=== PATIENT | male | born 1935 | race Two or more races ===

== ENCOUNTER 2016-12-04 11:56 | Inpatient (IN) | payer OTHER ==
[~2016-12-04] VITALS: Ht 175.3 cm; Wt 68.1 kg
[2016-12-04] MEDS ORDERED: SODIUM CHLORIDE 0.9% 1,000 ML IV ONE (12:58)
[2016-12-04 13:58] LABS: Basophils # (auto) 0 uL; Basophils % (auto) 0.4 % (0.0-2.0); Eosinophils # (auto) 0.1 uL; Eosinophils % (auto) 0.7 % (0.0-7.0); Hematocrit 47.8 % (41.0-53.0); Hemoglobin 15.8 g/dL (13.5-17.5); Lymphocytes # (auto) 1.3 uL; Lymphocytes % (auto) 12.8 % (10.0-50.0); Mean Corpuscular Hemoglobin 30.1 pg (28.0-32.0); Mean Corpuscular Hgb Conc. 33.1 g/dL (32.0-36.0); Mean Platelet Volume 8.9 fL (7.4-10.4); Monocytes # (auto) 0.4 uL; Monocytes % (auto) 4.3 % (0.0-12.0); Neutrophils # (auto) 8.3 uL; Neutrophils % (auto) 81.8 % (37.0-80.0); Platelet Count (auto) 221 10^3/uL (140-450); Red Cell Distribution Width 13.5 % (11.6-16.0); White Blood Cell 10.1 10^3/uL (4.4-10.8)
[2016-12-04 14:18] LABS: INR 0.98 (0.9-1.15); Partial Thromboplastin Time 29.8 sec (22.64-33.71); Prothrombin Time 10.7 sec (9.37-12.3)
[2016-12-04 14:25] LABS: Alkaline Phosphatase 87 U/L (45-117); Anion Gap 8 (5-15); Aspartate Aminotransferase 21 U/L (15-37); B-Type Natriuretic Peptide 13.65 pg/mL (0-100); BUN/Creatinine Ratio 22.9; Bilirubin, Total 0.5 mg/dL (0.2-1.0); Blood Urea Nitrogen 30 mg/dL (7-18); Calcium 8.9 mg/dL (8.5-10.1); Carbon Dioxide 29 mmol/L (21-32); Chloride 103 mmol/L (98-107); GFR African American 67 mL/min; GFR Non-African American 56 mL/min; Glucose 104 mg/dL (74-106); Potassium 4.5 mmol/L (3.5-5.1); Sodium 140 mmol/L (136-145); Total Protein 7.7 g/dL (6.4-8.2)
[2016-12-04 14:29] LABS: Temperature: 23.9 C (20.0-25.0)
[2016-12-04 15:03] LABS: Urine RBC None Seen /hpf (0 - 3)
[2016-12-04] MEDS ORDERED: LORazepam 2MG/ML-1ML VIAL ONE (15:33)
[2016-12-04] MEDS ORDERED: SODIUM CHLORIDE 0.9% 1,000 ML IV SCH (15:37)
[2016-12-04] MEDS ORDERED: PROMETHAZINE HCL 25 MG/ML 1ML IV PRN (15:45)
[2016-12-04] MEDS ORDERED: ACETAMINOPHEN 500 MG TAB PO PRN (15:45)
[2016-12-04] MEDS ORDERED: NITROGLYCERIN 0.4 MG SL TAB SL PRN (15:45)
[2016-12-04] MEDS ORDERED: LORazepam 2MG/ML-1ML VIAL IV ONE (15:45)
[2016-12-04] MEDS ORDERED: LACTULOSE 20Gm/30ML SOLN PO PRN (15:45)
[2016-12-04] MEDS ORDERED: LORazepam 0.5 MG TAB PO PRN (15:45)
[2016-12-04] MEDS ORDERED: MORPHINE SULF INJ 2 MG/ML SYRINGE 1ML IV PRN ×2 (15:45)
[2016-12-04] MEDS ORDERED: HYDROcodone-ACET 5/325MG TAB PO PRN (15:45)
[2016-12-04 15:49] LABS: Urine Bilirubin Negative (Negative); Urine Blood Negative /uL (Negative); Urine Color Yellow (Yellow); Urine Glucose Normal (Normal); Urine Hyaline Cast FEW /lpf (0 - 2); Urine Ketone Negative (Negative); Urine Mucus FEW (None Seen); Urine Nitrite Negative (Negative); Urine Squamous Epithelial Cell FEW /hpf (<5); Urine Urobilinogen Normal (Negative)
[2016-12-04] MEDS ORDERED: LOR05T PO (16:06)
[2016-12-04] MEDS ORDERED: ALBUAER3 IN (16:06)
[2016-12-04] MEDS: ENOXAPARIN SOD 40 MG/0.4 ML SYRINGE SC SCH (16:49)
[2016-12-04] MEDS: PANTOPRAZOLE 40 MG TAB PO SCH (16:49)
[2016-12-04 17:06] LABS: Temperature: 23.4 C (20.0-25.0)
[2016-12-04] MEDS ORDERED: FINA5TAB4 PO (17:06)
[2016-12-04] MEDS ORDERED: PAR20T PO (17:09)
[2016-12-04 20:40] VITALS: BP 135/59
[2016-12-04 21:48] VITALS: BP 135/59
[2016-12-04] MEDS ORDERED: ATORVASTATIN 20 MG TAB PO SCH (22:00)
[2016-12-04] MEDS: TEMAZEPAM 15 MG CAP PO PRN ×2 (23:19→23:24)
[2016-12-05 04:52] VITALS: BP 157/64
[2016-12-05 07:00] LABS: Albumin 3.2 g/dL (3.4-5.0); BUN/Creatinine Ratio 27.2; Bilirubin, Total 0.8 mg/dL (0.2-1.0); Calcium 8.2 mg/dL (8.5-10.1); Potassium 4.3 mmol/L (3.5-5.1); Total Protein 6.3 g/dL (6.4-8.2)
[2016-12-05 08:00] VITALS: BP 162/68
[2016-12-05 09:00] VITALS: BP 162/68
[2016-12-05 09:34] VITALS: BP 157/64
[2016-12-05] MEDS: ENOXAPARIN SOD 40 MG/0.4 ML SYRINGE SC SCH (10:00)
[2016-12-05] MEDS ORDERED: ASPirin 81 mg TAB PO SCH (10:00)
[2016-12-05] MEDS: PANTOPRAZOLE 40 MG TAB PO SCH (10:00)
[2016-12-05] MEDS: hydrALAZINE HCL 20 MG/ML VL IV PRN ×2 (10:02→16:44)
[2016-12-05 13:00] VITALS: BP 152/68
[2016-12-05 13:47] LABS: Temperature: 23.7 C (20.0-25.0)
[2016-12-05] MEDS ORDERED: SODIUM CHLORIDE 0.9% 1,000 ML IV SCH (15:37)
[2016-12-05 16:11] VITALS: BP 168/75
== END 2016-12-05 17:30 | disposition short-term general hospital (02) | DRG 64 ==
LOC: ER 11:56 → EDBD 11:57 → TELE 11:57 → TELE-CENTR 20:40
PROVIDERS: ADMIT Internal Medicine; ATTEND Family Medicine
DX: I63.9 Cerebral infarction, unspecified (principal); G93.41 Metabolic encephalopathy; M62.82 Rhabdomyolysis; N17.9 Acute kidney failure, unspecified; E86.0 Dehydration; J45.909 Unspecified asthma, uncomplicated; N40.0 Benign prostatic hyperplasia without lower urinary tract symptoms; G47.00 Insomnia, unspecified; H53.9 Unspecified visual disturbance; F32.9 Major depressive disorder, single episode, unspecified; R07.89 Other chest pain; F41.9 Anxiety disorder, unspecified; K59.00 Constipation, unspecified; Z53.29 Procedure and treatment not carried out because of patient's decision for other reasons; Z79.899 Other long term (current) drug therapy; Z79.82 Long term (current) use of aspirin; Z87.891 Personal history of nicotine dependence
CPT/HCPCS: 36415; 51702; 70450; 71010; 80053; 80061; 81001; 82550; 82607; 82746; 82962; 83880; 84439; 84443; 84484; 85025; 85379; 85610; 85652; 85730; 86141; 93306; 93886; 95819; 96361; 96374